=== PATIENT | male | born 1960 | race Caucasian/White ===

== ENCOUNTER 2017-05-11 09:20 | Emergency (ER) | payer BC ==
[2017-05-11 09:37] VITALS: BP 141/82; BMI 33.9
--- NOTE | 2017-05-11 10:07 | DR.EXTPAIN ---
HPI - Time seen Time seen: 10:00 - PCP Primary Care Physician: RAÚL ABREU - HPI Comment HPI Comment: PATIENT HAVING PROBLEM BEARING WEIGHT ON THE RIGHT SIDE. DENIES PELVIC PAIN. - Complaint/Symptoms Chief Complaint Doctor Comments: JUMP OFF 6 FOOT LADDER AND LANDED ON RIGHT HEEL. Chief Complaint:: JUMPED FROM LADDER OF ABOUT 6 FOOT FROM FALLING LADDER. LANDED ON RIGHT ANKLE/FOOT. PAIN TO RIGHT ANKLE AND FOOT Self Treatment fo Chief Complaint: NON - Nurses notes reviewed Nurses Notes Review: Yes - Source History Provided: Patient - Mode of arrival Mode of Arrival: Wheelchair - Timing Onset of Chief Complaint: 05/11/17 - Context History of: None - Associated signs and symptoms Associated Signs and Symptoms: Pain, Swelling, Bruising PMH - PMH Past Medical History: Yes Past Medical History: Arthritis, Diabetes, Hypertension, Hypothyroidism Past Surgical History: No - Family History History of Family Medical Conditions: Yes Family Medical History: Diabetes Mellitus, Cancer, MS, Coronary Artery Disease, Hypertension - Social History Does any household member use tobacco: No Alcohol Use: None Do you use any recreational Drugs:: No Lives With: Family Lives Where: Home - infectious screening In the last 2 months have you had wt loss of >10#?: NO Have you had fever, night sweats or hemotysis?: No Have you traveled outside the country in the last 6 months?: No Isolation: Standard ROS - Review of Systems Constitutional: No Symptoms Reported Eyes: No Symptoms Reported ENTM: No Symptoms Reported Respiratoy: No Symptoms Reported Cardiovascular: No Symptoms Reported Gastrointestinal/Abdominal: No Symptoms Reported Genitourinary: No Symptoms Reported Neurological: No Symptoms Reported Musculoskeletal: Right, Ankle, Foot Integumentary: No Symptoms Reported Hematologic/Lymphatic: No Symptoms Reported Endocrine: No Symptoms Reported All Other Systems: Reviewed and Negative PE - Vital Signs Vitals: Temperature 98.0 F Pulse Rate 83 Respiratory Rate 14 Blood Pressure 141/82 O2 Sat by Pulse Oximetry 100 - General Limitations: No Limitations General Appearance: Alert - Head Head Exam: Normal Inspection - Eyes Eye exam: Normal Appearance - ENT ENT Exam: Normal External Ear Exam - Neck Neck Exam: Normal Inspection - Chest Chest Inspection: Symmetric Chest Wall Rise - Respiratory Respiratory Exam: Normal Lung Sounds Bilat Respiratory Exam: Bilateral Clear to Auscultation - Cardiovascular Cardiovascular Exam: Regular Rate, Normal Rhythm, Normal Heart Sounds - Abdominal Exam Abdominal Exam: Normal Bowel Sounds, Soft. negative: Distention - Extremities Extremities Exam: Tenderness (TENDERNESS RT ANKLE AND FOOT WITH DECREASE ROM RT ANKLE.), Joint Swelling (RT ANKLE) - Lower Extremities Gait Exam: Observed & Limited by Pain - Back Back Exam: Normal Inspection - Neurological Neurological Exam: Alert, Oriented X3, CN II-XII Intact. negative: Motor Sensory Deficit - Psychiatric Psychiatric Exam: Normal Affect, Normal Mood - Skin Skin Exam: Erythema MDM - Differential Diagnosis Differential Diagnosis: Contusion, Fracture, Sprain Course - Treatment Treatment: SEE ORDERS. - Consultation Consultation Comments: DR. LLOYD IN ED AND SAW PATIENT. - Education/Counseling Education/Counseling: Patient, Family, Education Educated On: Diagnosis, Needs for Follow Up ROR - XRAY XRAY Interpreted by: Radiologist XRAY Findings: REPORT DISCUSS WITH PATIENT. - Diagnosis Discharge Problem: Calcaneal fracture Qualifiers: Encounter type: initial encounter Calcaneus location: body Fracture type: closed Fracture alignment: nondisplaced Laterality: right Qualified Code(s): S92.014A - Nondisplaced fracture of body of right calcaneus, initial encounter for closed fracture - Discharge Plan Disposition: 01 HOME, SELF-CARE Condition: Stable Prescriptions: Hydrocodone-Acet 7.5 mg/325 mg [Murphy 7.5/325 mg Tab] 1 tab PO Q6H PRN #20 tab PRN Reason: Pain - Follow ups/Referrals Follow ups/Referrals: RAÚL ABREU [Primary Care Provider] - 3 days DANTE LLOYD [STAFF PHYSICIAN] - 1 day - Instructions Instructions: Ankle Fracture, [id number] Additional Instructions: RETURN TO ED IF WORSE.
--- NOTE | 2017-05-11 10:57 | RAD ---
HISTORY: Injury, fell from ladder, right foot pain Study: Right foot AP, lateral, oblique Comparison: None Findings: There is a not significantly displaced fracture of the calcaneus present. The subtalar joint is intac t. The remainder of the bones and joints of the foot are intact and normally aligned. IMPRESSION: Nondisplaced calcaneal fracture Reported By:
--- NOTE | 2017-05-11 12:25 | RAD ---
HISTORY: Seen after fall from ladder Study: Three views right ankle Comparison: None Findings: Normal alignment. There is a nondisplaced fracture of the midportion of the calcaneus. The soft tissu es are unremarkable. IMPRESSION: 1. Nondisplaced fracture the midportion of the calcaneus. Reported By:
== END 2017-05-11 12:13 | disposition home or self-care (01) ==
LOC: ER 09:43
DX: S92.014A Nondisplaced fracture of body of right calcaneus, initial encounter for closed fracture (principal); W11.XXXA Fall on and from ladder, initial encounter; Y92.9 Unspecified place or not applicable
CPT/HCPCS: 29515; 73610; 73630; 99282

== ENCOUNTER → 2017-05-25 | Outpatient (CLI) | payer BC ==
[2017-05-11 09:37] VITALS: BP 141/82
--- NOTE | 2017-05-25 15:15 | CT ---
CT right foot without contrast Indication: Calcaneal fracture after jumping from ladder Comparison: Radiographs 05/11/2017 Technique: CT images of the right foot were obtained without contrast. Automatic exposure control was utilized. Findings: There is comminuted calcaneal fracture with fracture extension to the calcaneocuboid and po sterior subtalar articular surfaces. There is no significant bony displacement. No additional foot fr acture or subluxation is identified. Small chronic calcaneal enthesophyte at the Achilles attachment is noted. Type 1 os navicularis is incidentally noted. There is subcutaneous edema about the calcaneu s, without discrete collection. The tendons about the foot and ankle are grossly intact. Impression: Comminuted calcaneal fracture without significant bony displacement. Reported By:
== END ==
LOC: RAD 14:34
PROVIDERS: ATTEND Specialist
DX: S92.001S Unspecified fracture of right calcaneus, sequela (principal); X58.XXXS Exposure to other specified factors, sequela
CPT/HCPCS: 73700

== ENCOUNTER → 2017-06-17 | Outpatient (CLI) | payer BC ==
--- NOTE | 2017-06-17 15:41 | RAD ---
Examination: Right foot, three views History: Fracture calcaneus Comparison reference: 05/11/2017 Findings: Re-demonstration of comminuted calcaneal fracture with slight interval healing. Bony union is not complete. There is no significant deformity or flattening; Boehler's angle remains normal. Impression: Healing right calcaneal fracture with no significant deformity recognized. Reported By:
== END ==
LOC: RAD 14:35
PROVIDERS: ATTEND Specialist
DX: S92.014 Nondisplaced fracture of body of right calcaneus (principal); X58.XXXS Exposure to other specified factors, sequela
CPT/HCPCS: 73630

== ENCOUNTER 2025-04-19 18:44 | Observation (INO) ==
--- NOTE | 2025-04-19 18:59 | EKG ---
Test Reason : Shortness of Breath Blood Pressure : */* mmHG Vent. Rate : 109 BPM Atrial Rate : 109 BPM P-R Int : 120 ms QRS Dur : 96 ms QT Int : 346 ms P-R-T Axes : 39 37 49 degrees QTc Int : 465 ms Sinus tachycardia Low voltage QRS T wave abnormality, consider inferior ischemia Abnormal ECG No previous ECGs available Confirmed by Ascencion Landers MD ([id number]) on 04/20/2025 6:00:28 AM Referred By: Confirmed By: Ascencion Landers MD
[2025-04-19 19:03] VITALS: BMI 32.3
[2025-04-19 19:17] LABS: MEAN PLATELET VOLUME 9.1 fL (7.4-11.0); RED CELL DISTRIBUTION WIDTH 14.4 % (11.6-16.5)
[2025-04-19 19:29] LABS: COR NA(FOR HYPERGLY) 137 mmol/L (136-145); CREATININE 1.15 mg/dL (0.70-1.30); eGFR NON BLACK RACES > 60 (>60)
[2025-04-19 19:34] LABS: PLATELET MORPHOLOGY COMMENT NORMAL (NORMAL)
[2025-04-19 19:37] LABS: BLOOD/HEMOGLOBIN,URINE 2+ (NEGATIVE); LEUKOCYTE ESTERASE ,URINE NEGATIVE (NEGATIVE); NITRITES,URINE NEGATIVE (NEGATIVE)
[2025-04-19] MEDS: NS 1,000 ML IV 1,000 ML IV ONE ×2 (19:38→20:18)
[2025-04-19 19:39] LABS: APPEARANCE,URINE CLEAR (CLEAR)
[2025-04-19] MEDS: MAGNESIUM SULFATE 1 GRAM/100 mL PREMIX 1 G/100 ML BAG IV SCH (19:39)
[2025-04-19 19:45] LABS: SQUAMOUS EPITHELIAL CELL,UR NEGATIVE /HPF (NEGATIVE)
[2025-04-19] MEDS: ZOSYN VIAL 3.375 GRAMS 3.375 G in NS 100 ML IV 100 ML IV ONE (21:06)
--- NOTE | 2025-04-19 21:12 | CT ---
EXAM: CTA CHEST WITH INTRAVENOUS CONTRAST HISTORY: Elevated D-dimer. Shortness of breath. TECHNIQUE: Spiral axial CT images are obtained through the chest with the administration of intravenous contrast. Coronal, sagittal and 3D MIP images are reformatted. COMPARISON: None available. FINDINGS: CARDIOVASCULAR: There is no evidence for pulmonary embolic disease. The heart size and mediastinal vascular structures are within normal limits. There is no significant aortic or coronary atherosclerosis seen. No thoracic aortic aneurysm or dissection is noted. MEDIASTINUM AND GIFTY: No mass lesion, lymphadenopathy, emphysema, or abnormal fluid collection is seen. LUNGS: There is no acute parenchymal infiltrate, lung nodule, or endobronchial obstructing lesion seen. No pleural effusion or pneumothorax is evident. CHEST WALL: There are no chest wall lesions seen. No axillary lymphadenopathy is noted. BONES AND JOINTS: There is no acute fracture or joint subluxation/dislocation seen. UPPER ABDOMEN: Limited views through the upper abdomen demonstrate no gross acute abnormality. IMPRESSION: 1. No evidence for pulmonary embolic disease. 2. No evidence for aortic aneurysm or aortic dissection. 3. No acute parenchymal infiltrate, pleural effusion, endobronchial obstructing lesion or pneumothorax seen. 4. No suspicious mass or lymphadenopathy is seen. THIS IS AN ELECTRONICALLY VERIFIED FINAL REPORT 04/19/2025 9:09 PM - Electronically signed by Lillie Garcia MD
--- NOTE | 2025-04-19 21:40 | CT ---
CT ABDOMEN AND PELVIS WITHOUT CONTRAST HISTORY: Abdominal pain COMPARISON: None TECHNIQUE: Axial images were obtained of the abdomen and pelvis without IV contrast. Sagittal and coronal reformatted images were provided. All images were reviewed in a variety of windows and levels. RADIATION REDUCTION TECHNIQUE: Automated exposure control, adjustment of the mA or kV according to patient size, or iterative reconstruction techniques were used. FINDINGS: Please note that lack of IV contrast does limit evaluation of the soft tissues and vascular detail. Please note this exam is a CT scan of the abdomen and pelvis without IV contrast. However images were obtained during the excretory phase after contrast was injected. This is most likely from a study obtained on the same day which was for a CT angiogram of the chest. The visualized lower lung zones are clear. The heart size is within normal limits. There is no evidence of a pericardial effusion. The liver, spleen, pancreas, adrenal glands, and kidneys are grossly unremarkable. The gallbladder is grossly unremarkable. There is no evidence of stones or signs of obstructive uropathy. The stomach, small bowel, and colon are grossly unremarkable. A few scattered diverticula are seen without evidence of diverticulitis. There are no inflammatory changes in the right lower quadrant to suggest secondary signs of acute appendicitis. The appendix is normal. There is no evidence of retroperitoneal or mesenteric lymphadenopathy. The visualized bones demonstrate degenerative changes. There are no concerning lytic or blastic lesions identified. IMPRESSION: 1. The appendix is normal. 2. A few scattered diverticula are seen without evidence of diverticulitis. 3. There is no evidence of stones or signs of obstructive uropathy. 4. Please note this exam is a CT scan of the abdomen and pelvis without IV contrast. However images were obtained during the excretory phase after contrast was injected. This is most likely from a study obtained on the same day which was for a CT angiogram of the chest. THIS IS AN ELECTRONICALLY VERIFIED FINAL REPORT 04/19/2025 9:37 PM - Electronically signed by Tyrone Herndon MD
--- NOTE | 2025-04-19 22:01 | DR.FEVERAD ---
HPI Time seen Time Seen by Provider: 04/19/25 19:00 PCP Primary Care Physician: RAÚL ABREU Complaints/Symptoms Chief Complaint Doctor Comments: Patient with history of total left knee performed 4 weeks ago healing well. Patient started having shaking and not feeling well last night, today started having fever cramping chest pain and some shortness of breath. Patient was seen at his PCP and diagnosed with UTI. Patient was given Rocephin in the office and started on Cipro. Patient feels like he has had no improvement. Chief Complaint:: PT IN ED VIA WHEELCHAIR WITH C/O FEVRE, SHAKING, CRAMPING, CHEST PAIN, DIFFICULTY BREATHING AND TALKING OUT OF HEAD. PT IS 4 WEEKS POST OP TOTAL LEFT KNEE. WAS SEEN BY PRIMARY THIS AM AND DX WITH UTI AND GIVEN A ROCEPHIN SHOT. COVID-19 Coronavirus risk:travel/contact w/high risk person: No Has patient experienced Coronavirus symptoms: Yes Coronavirus symptoms experienced: Fever and Shortness of Breath Source History Provided: Patient and Family Member Mode of Arrival Mode of Arrival: Wheelchair Timing Onset of Chief Complaint: 04/18/25 PMH PMH Past Medical History: Yes Past Medical History: Angina, Anxiety, Arthritis, Depression, Diabetes, Dyslipidemia, Hypertension, Hypothyroidism and HI Past Surgical History: Yes Surgical History: Ortho Surgery Past Surgical History Comment: TOTAL LEFT KNEE Family History History of Family Medical Conditions: Yes Family Medical History: Diabetes Mellitus, Cancer, HI, Coronary Artery Disease and Hypertension Social History Does patient currently use any type of tobacco product: No Have you used tobacco products in the last 12 months: No Type of Tobacco Use: None Does any household member use tobacco: No Alcohol Use: None Do you use any recreational Drugs:: No Lives With: Spouse Lives Where: Home Travel Risk Coronavirus risk:travel/contact w/high risk person: No Has patient experienced Coronavirus symptoms: Yes Coronavirus symptoms experienced: Fever and Shortness of Breath Infectious screening In the last 2 months have you had wt loss of >10#?: NO Have you had fever, night sweats or hemotysis?: No Have you traveled outside the country in the last 6 months?: No Isolation: Standard ROS Review of Systems Constitutional: See HPI, Chills and Fever Eyes: No Symptoms Reported ENTM: No Symptoms Reported Respiratoy: See HPI and Short of Breath; negative Wheezing Cardiovascular: See HPI and Chest Pain; negative Edema, Palpitations or Syncope Gastrointestinal/Abdominal: Abdominal Pain (Suprapubic discomfort); negative Constipation, Diarrhea, Nausea or Vomiting Genitourinary: See HPI Neurological: No Symptoms Reported; negative Numbness, Seizure, Dizziness or Speech Problem Musculoskeletal: No Symptoms Reported Integumentary: No Symptoms Reported Hematologic/Lymphatic: No Symptoms Reported Endocrine: No Symptoms Reported Psychiatric: No Symptoms Reported All Other Systems: Reviewed and Negative PE Vital Signs Vitals: Vital Signs Temperature 98.2 F Pulse Rate 94 Pulse Rate 94 Pulse Rate 100 Pulse Rate 99 Pulse Rate 95 Pulse Rate 94 Pulse Rate 91 Pulse Rate 96 Pulse Rate 97 Pulse Rate 101 Pulse Rate 108 Pulse Rate 151 Respiratory Rate 31 Respiratory Rate 32 Respiratory Rate 40 Respiratory Rate 36 Respiratory Rate 37 Respiratory Rate 45 Respiratory Rate 48 Respiratory Rate 30 Respiratory Rate 45 Respiratory Rate 24 Blood Pressure 183/81 Blood Pressure 179/81 Blood Pressure 167/74 Blood Pressure 134/54 Blood Pressure 166/96 Blood Pressure 166/96 O2 Sat by Pulse Oximetry 97 O2 Sat by Pulse Oximetry 100 O2 Sat by Pulse Oximetry 100 O2 Sat by Pulse Oximetry 99 O2 Sat by Pulse Oximetry 100 O2 Sat by Pulse Oximetry 100 O2 Sat by Pulse Oximetry 100 O2 Sat by Pulse Oximetry 100 O2 Sat by Pulse Oximetry 100 O2 Sat by Pulse Oximetry 98 O2 Sat by Pulse Oximetry 99 O2 Sat by Pulse Oximetry 98 General Limitations: No Limitations General Appearance: Alert, Anxious and In Distress Head Head Exam: Normal Inspection Eyes Eye exam: Normal Appearance ENT ENT Exam: Normal Exam Neck Neck Exam: Normal Inspection Respiratory Respiratory Exam: Normal Lung Sounds Bilat Cardiovascular Cardiovascular Exam: Regular Rate and Normal Rhythm Abdominal Exam Abdominal Exam: Normal Inspection, Normal Bowel Sounds, Soft and Tenderness (Very mild tenderness over bladder.); negative Distention, Guarding, Rebound, Rigidity or Organomegaly Extremities Extremities Exam: Normal Inspection (Left knee surgical site healing well without signs of infection.) Back Back Exam: Normal Inspection Neurologic Neurological Exam: Alert and Oriented X3 Psychiatric Psychiatric Exam: Anxious Skin Skin Exam: Warm, Dry, Intact and Normal Color COURSE Treatment Treatment: Patient improved significantly during time in ER. Sepsis suspected from UTI. Suspect D-dimer is elevated due to infection. Patient and family agreeable with admission. Discussed results of workup and treatment options with patient and family. Consultation Called: 22:12 Consultation Comments: Discussed case with Dr. Gómez and he is agreeable to admission ROR Labs Reviewed Laboratory Results Reviewed?: Yes 04/19/25 19:03 04/19/25 19:03 Laboratory: WBC 23.2 X10^3/uL (3.6-10.0) H 04/19/25 19:03 RBC 4.74 X10^6/uL (4.7-6.0) 04/19/25 19:03 Hgb 13.2 g/dL (13.5-18.0) L 04/19/25 19:03 Hct 39.5 % (42.0-54.0) L 04/19/25 19:03 MCV 83.2 fL (80.0-100.0) 04/19/25 19:03 MCH 27.8 pg (27.0-34.0) 04/19/25 19:03 MCHC 33.4 g/dL (33.0-35.0) 04/19/25 19:03 RDW 14.4 % (11.6-16.5) 04/19/25 19:03 Plt Count 222 X10^3/uL (150.0-450.0) 04/19/25 19:03 Plt Count Comment Adequate (ADEQUATE) 04/19/25 19:03 MPV 9.1 fL (7.4-11.0) 04/19/25 19:03 Neut % (Auto) 85.1 % (42.0-75.0) H 04/19/25 19:03 Lymph % (Auto) 7.9 % (21.0-51.0) L 04/19/25 19:03 [place] % (Auto) 6.3 % (0.0-13.0) 04/19/25 19:03 Eos % (Auto) 0.2 % (0.9-2.9) L 04/19/25 19:03 Baso % (Auto) 0.5 % (0.2-1.0) 04/19/25 19:03 Neut # (Auto) 19.8 x10^3/uL (2.2-4.8) H 04/19/25 19:03 Lymph # (Auto) 1.8 X10^3/uL (1.3-2.9) 04/19/25 19:03 [place] # (Auto) 1.5 x10^3/uL (0.3-0.8) H 04/19/25 19:03 Eos # (Auto) 0.0 x10^3/uL (0.0-0.2) 04/19/25 19:03 Baso # (Auto) 0.1 X10^3/uL (0.0-0.1) 04/19/25 19:03 Absolute Nucleated RBC 0.0 /100WBC 04/19/25 19:03 Total Counted 100 04/19/25 19:03 Neutrophils % (Manual) 81 % (39-76) H 04/19/25 19:03 Lymphocytes % (Manual) 11 % (13-43) L 04/19/25 19:03 Monocytes % (Manual) 8 % (4-9) 04/19/25 19:03 Plt Morphology Comment Normal (NORMAL) 04/19/25 19:03 RBC Morphology Normal (NORMAL) 04/19/25 19:03 D-Dimer 2.46 ug/ml (0.0-0.57) H 04/19/25 19:03 Sodium 133 mmol/L (136-145) L 04/19/25 19:03 Corrected Sodium 137 mmol/L (136-145) 04/19/25 19:03 Potassium 3.4 mmol/L (3.5-5.1) L 04/19/25 19:03 Chloride 99 mmol/L (98-107) 04/19/25 19:03 Carbon Dioxide 18.9 mmol/L (21-32) L 04/19/25 19:03 BUN 13 mg/dL (7-18) 04/19/25 19:03 Creatinine 1.15 mg/dL (0.70-1.30) 04/19/25 19:03 Est GFR (MDRD) Af Amer > 60 (>60) 04/19/25 19:03 Est GFR (MDRD) Non-Af > 60 (>60) 04/19/25 19:03 Glucose 246 mg/dL (65-99) H 04/19/25 19:03 POC Glucose (mg/dL) 218 mg/dL (65-99) H 04/19/25 21:51 Lactic Acid 2.0 mmol/L (0.4-2.0) 04/19/25 21:03 Calcium 8.8 mg/dL (8.5-10.1) 04/19/25 19:03 Corrected Calcium TNP 04/19/25 19:03 Magnesium 1.7 mg/dL (2.0-2.9) L 04/19/25 19:03 Magnesium Cancelled 04/19/25 19:03 Total Bilirubin 1.50 mg/dL (0.2-1.0) H 04/19/25 19:03 AST 17 Units/L (15-37) 04/19/25 19:03 ALT 16 Units/L (12-78) 04/19/25 19:03 Alkaline Phosphatase 74 Units/L (46-116) 04/19/25 19:03 Troponin I High Sens 11.7 ng/L (4.0-60.0) 04/19/25 21:03 B-Natriuretic Peptide 42.8 pg/mL (0-79) 04/19/25 19:03 Total Protein 8.0 g/dL (6.4-8.2) 04/19/25 19:03 Albumin 3.7 g/dL (3.4-5.0) 04/19/25 19:03 Globulin 4.3 g/dL (2.5-4.5) 04/19/25 19:03 Albumin/Globulin Ratio 0.9 Ratio (1.1-2.1) L 04/19/25 19:03 Specimen Type Clean catch urine 04/19/25 19: Urine Color Yellow (YELLOW) 04/19/25: Urine Appearance Clear (CLEAR) 04/19/25: Urine pH 6.0 (5.0 - 8.0) 04/19/25: Ur Specific [place] 1.005 (1.000-1.030) 04/19/25: Urine Protein 1+ (NEGATIVE) 04/19/25: Urine Glucose (UA) 4+ (NEGATIVE) 04/19/25: Urine Ketones 3+ (NEGATIVE) 04/19/25 Urine Blood 2+ (NEGATIVE) 04/19/25: Urine Nitrite Negative (NEGATIVE) 04/19/25: Urine Bilirubin Negative (NEGATIVE) 04/19/25: Urine Urobilinogen Normal (NORMAL) 04/19/25: Ur Leukocyte Esterase Negative (NEGATIVE) 04/19/25:30 Urine RBC 3-5 /HPF (0-3) A 04/19/25 19:30 Urine WBC 30-50 /HPF (0-5) A 04/19/25 19:30 Ur Squamous Epith Cells Negative /HPF (NEGATIVE) 04/19/25 19:30 Urine Bacteria Negative /HPF (NEGATIVE) 04/19/25 19:30 Ur Culture Indicated? Yes/culture set up 04/19/25 19:30 SARS-CoV-2 (PCR) Negative (NEGATIVE) 04/19/25 19:10 Influenza Type A (PCR) Negative (NEGATIVE) 04/19/25 19:10 Influenza Type B (PCR) Negative (NEGATIVE) 04/19/25 19:10 RSV (PCR) Negative (NEGATIVE) 04/19/25 19:10 Other Results Comments: Venous Doppler of bilateral lower extremities were negative per windmill technician. Name: Khoa Staples : 1960 Sex: M Location: ER Order Number(s): [id number] Procedure(s):LOWER EXT VENOUS, BILATERAL Ordering Physician: Danie Charles Primary Care: NFD,None Service Date: 04/19/25 Service Time: 2114 EXAM: BILATERAL LOWER EXTREMITY VENOUS DOPPLER ULTRASOUND HISTORY: Elevated D-dimer. Status post left knee replacement. TECHNIQUE: The lower extremity veins were interrogated with a high-frequency linear transducer, employing grayscale imaging, duplex Doppler and color flow Doppler imaging. COMPARISON: None available. FINDINGS: RIGHT: Interrogation of the common femoral vein, superficial femoral vein, popliteal vein, and posterior tibial vein demonstrates no intraluminal filling defects, no lack of vein compressibility, or no absence of intraluminal color flow Doppler signal to suggest deep venous thrombosis. There is no evidence for luminal thrombosis of the saphenous veins to suggest superficial vein thrombosis. No popliteal lesion reminiscent of a Rebolledo's cyst is seen. No gross arterial aneurysm is incidentally noted. LEFT: Interrogation of the common femoral vein, superficial femoral vein, popliteal vein, and posterior tibial vein demonstrates no intraluminal filling defects, no lack of vein compressibility, or no absence of intraluminal color flow Doppler signal to suggest deep venous thrombosis. There is no evidence for luminal thrombosis of the saphenous veins to suggest superficial vein thrombosis. No popliteal lesion reminiscent of a Rebolledo's cyst is seen. No gross arterial aneurysm is incidentally noted. Note: DVT could be missed early in the disease when clot burden is minimal. For patients with moderate and high pretest probability of DVT and negative ultrasound, the [employer] [place] [employer] chest physicians clinical guidelines recommend testing with a d-dimer assay or repeat ultrasound in 5-7 days. If symptoms worsen, the Society of radiologists in ultrasound recommend repeating ultrasound even earlier. IMPRESSION: 1. No evidence for DVT or SVT seen bilaterally. 2. No abnormal fluid collection or Rebolledo's cyst seen bilaterally. THIS IS AN ELECTRONICALLY VERIFIED FINAL REPORT 04/19/2025 10:01 PM - Electronically signed by Lillie Garcia MD Name: Khoa Staples : 1960 Sex: M Location: ER Order Number(s): [id number] Procedure(s):CT ABDOMEN/PELVIS W/O CON Ordering Physician: Danie Charles Primary Care: NFDMarisela Service Date: 04/19/25 Service Time: 1942 CT ABDOMEN AND PELVIS WITHOUT CONTRAST HISTORY: Abdominal pain COMPARISON: None TECHNIQUE: Axial images were obtained of the abdomen and pelvis without IV contrast. Sagittal and coronal reformatted images were provided. All images were reviewed in a variety of windows and levels. RADIATION REDUCTION TECHNIQUE: Automated exposure control, adjustment of the mA or kV according to patient size, or iterative reconstruction techniques were used. FINDINGS: Please note that lack of IV contrast does limit evaluation of the soft tissues and vascular detail. Please note this exam is a CT scan of the abdomen and pelvis without IV contrast. However images were obtained during the excretory phase after contrast was injected. This is most likely from a study obtained on the same day which was for a CT angiogram of the chest. The visualized lower lung zones are clear. The heart size is within normal limits. There is no evidence of a pericardial effusion. The liver, spleen, pancreas, adrenal glands, and kidneys are grossly unremarkable. The gallbladder is grossly unremarkable. There is no evidence of stones or signs of obstructive uropathy. The stomach, small bowel, and colon are grossly unremarkable. A few scattered diverticula are seen without evidence of diverticulitis. There are no inflammatory changes in the right lower quadrant to suggest secondary signs of acute appendicitis. The appendix is normal. There is no evidence of retroperitoneal or mesenteric lymphadenopathy. The visualized bones demonstrate degenerative changes. There are no concerning lytic or blastic lesions identified. IMPRESSION: 1. The appendix is normal. 2. A few scattered diverticula are seen without evidence of diverticulitis. 3. There is no evidence of stones or signs of obstructive uropathy. 4. Please note this exam is a CT scan of the abdomen and pelvis without IV contrast. However images were obtained during the excretory phase after contrast was injected. This is most likely from a study obtained on the same day which was for a CT angiogram of the chest. THIS IS AN ELECTRONICALLY VERIFIED FINAL REPORT 04/19/2025 9:37 PM - Electronically signed by Tyrone Herndon MD Name: Khoa Staples : 1960 Sex: M Location: ER Order Number(s): [id number] Procedure(s):CTA, CHEST Ordering Physician: Danie Charles Primary Care: NFD,None Service Date: 04/19/25 Service Time: 1929 EXAM: CTA CHEST WITH INTRAVENOUS CONTRAST HISTORY: Elevated D-dimer. Shortness of breath. TECHNIQUE: Spiral axial CT images are obtained through the chest with the administration of intravenous contrast. Coronal, sagittal and 3D MIP images are reformatted. COMPARISON: None available. FINDINGS: CARDIOVASCULAR: There is no evidence for pulmonary embolic disease. The heart size and mediastinal vascular structures are within normal limits. There is no significant aortic or coronary atherosclerosis seen. No thoracic aortic aneurysm or dissection is noted. MEDIASTINUM AND GIFTY: No mass lesion, lymphadenopathy, emphysema, or abnormal fluid collection is seen. LUNGS: There is no acute parenchymal infiltrate, lung nodule, or endobronchial obstructing lesion seen. No pleural effusion or pneumothorax is evident. CHEST WALL: There are no chest wall lesions seen. No axillary lymphadenopathy is noted. BONES AND JOINTS: There is no acute fracture or joint subluxation/dislocation seen. UPPER ABDOMEN: Limited views through the upper abdomen demonstrate no gross acute abnormality. IMPRESSION: 1. No evidence for pulmonary embolic disease. 2. No evidence for aortic aneurysm or aortic dissection. 3. No acute parenchymal infiltrate, pleural effusion, endobronchial obstructing lesion or pneumothorax seen. 4. No suspicious mass or lymphadenopathy is seen. THIS IS AN ELECTRONICALLY VERIFIED FINAL REPORT 04/19/2025 9:09 PM - Electronically signed by Lillie Garcia MD XRAY XRAY Interpreted by: Self (Chest x-ray reviewed interpreted by myself. No acute cardiopulmonary findings) EKG Rate: 109 [place]: Normal Rhythm: ST Block: None Hypertrophy: None ST: Normal Opioid Opioid Risk Tool Age (Jered box if 16-45): No History of Preadolescent Sexual Abuse: No Total: 0 Total Score Risk Category: Low Risk Copyright: [facility] predicting aberrant behaviors Discharge Plan Diagnosis Discharge Problem: Sepsis secondary to UTI, Diabetes mellitus type 2, noninsulin dependent, Hypertension, Hyperlipidemia, Hypothyroidism Discharge Plan Patient Disposition: ADMITTED INPATIENT Condition: Stable Prescriptions: No Action Jardiance 25 mg tablet 25 mg PO QAM Qty: 90 3RF losartan 50 MG tablet 50 mg PO DAILY Patient Comments: levothyroxine 50 MCG tablet 50 mcg PO DAILY meloxicam 15 mg tablet 15 mg PO QDAY ciprofloxacin HCl 500 mg tablet 500 mg PO BID glimepiride 2 mg tablet 2 mg PO BID escitalopram oxalate 20 mg tablet 10 mg PO QDAY Mounjaro 15 mg/0.5 mL pen injector 15 mg SUBCUT WEEKLY Patient Comments: [NO ORIGINAL SIG] aspirin 81 mg Tablet 81 mg PO QDAY Health Concerns: Post Hospitalization: new medications and changes needed to prevent readmission or further decline. Pt educated and given instructions on all concerns. Plan of Treatment: Continue with present treatment and follow up plan. Pt is to keep follow up appointment as instructed and take medications as ordered. Orders to Discharge Patient Discharge Orders: Transfer (Routine); Ordered 04/19/25 Ordered By: Danie Charles Follow ups/Referrals Follow ups/Referrals: NFD,None [Primary Care Provider] - 3 days Instructions Stand Alone Forms: Find Help Web Site, Post Hospital Follow Up Care Print Language: SAMMARINESE
--- NOTE | 2025-04-19 22:05 | VAS ---
EXAM: BILATERAL LOWER EXTREMITY VENOUS DOPPLER ULTRASOUND HISTORY: Elevated D-dimer. Status post left knee replacement. TECHNIQUE: The lower extremity veins were interrogated with a high-frequency linear transducer, employing grayscale imaging, duplex Doppler and color flow Doppler imaging. COMPARISON: None available. FINDINGS: RIGHT: Interrogation of the common femoral vein, superficial femoral vein, popliteal vein, and posterior tibial vein demonstrates no intraluminal filling defects, no lack of vein compressibility, or no absence of intraluminal color flow Doppler signal to suggest deep venous thrombosis. There is no evidence for luminal thrombosis of the saphenous veins to suggest superficial vein thrombosis. No popliteal lesion reminiscent of a Rebolledo's cyst is seen. No gross arterial aneurysm is incidentally noted. LEFT: Interrogation of the common femoral vein, superficial femoral vein, popliteal vein, and posterior tibial vein demonstrates no intraluminal filling defects, no lack of vein compressibility, or no absence of intraluminal color flow Doppler signal to suggest deep venous thrombosis. There is no evidence for luminal thrombosis of the saphenous veins to suggest superficial vein thrombosis. No popliteal lesion reminiscent of a Rebolledo's cyst is seen. No gross arterial aneurysm is incidentally noted. Note: DVT could be missed early in the disease when clot burden is minimal. For patients with moderate and high pretest probability of DVT and negative ultrasound, the [place] [employer] clinical guidelines recommend testing with a d-dimer assay or repeat ultrasound in 5-7 days. If symptoms worsen, the Society of radiologists in ultrasound recommend repeating ultrasound even earlier. IMPRESSION: 1. No evidence for DVT or SVT seen bilaterally. 2. No abnormal fluid collection or Rebolledo's cyst seen bilaterally. THIS IS AN ELECTRONICALLY VERIFIED FINAL REPORT 04/19/2025 10:01 PM - Electronically signed by Lillie Garcia MD
[2025-04-19] MEDS: APRESOLINE INJ 20 MG VIAL IVP ONE (22:27)
[2025-04-19] MEDS ORDERED: NS 250 ML IV 25 ML IV PRN (22:56)
[2025-04-19] MEDS ORDERED: TYLENOL 325 MG TAB PO PRN (22:56)
[2025-04-19] MEDS ORDERED: NORCO 5/325 MG TAB PO PRN (22:56)
[2025-04-19] MEDS ORDERED: ZOFRAN INJ 4 MG VIAL IVP PRN (22:56)
[2025-04-19] MEDS ORDERED: ULTRAM PO PRN (22:56)
[2025-04-19] MEDS ORDERED: CONSULT PHARMACY - POTASSIUM & MAGNESIUM XX SCH (23:00)
[2025-04-20] MEDS: NS 1,000 ML IV 1,000 ML IV SCH (00:36)
[2025-04-20] MEDS: NS 250 ML IV 25 ML IV PRN (05:10)
[2025-04-20] MEDS: ZOSYN VIAL 3.375 GRAMS 3.375 G in NS 100 ML IV 100 ML IV SCH (05:10)
[2025-04-20 05:13] LABS: MEAN PLATELET VOLUME 9.4 fL (7.4-11.0); RED CELL DISTRIBUTION WIDTH 14.5 % (11.6-16.5)
[2025-04-20 05:29] LABS: COR CA(FOR HYPOALB) 8.9 mg/dL (8.5-10.1); COR NA(FOR HYPERGLY) 138 mmol/L (136-145); CREATININE 0.93 mg/dL (0.70-1.30); eGFR NON BLACK RACES > 60 (>60)
--- NOTE | 2025-04-20 06:38 | RAD ---
EXAM: Portable chest HISTORY: Shortness of breath COMPARISON: 01/17/2025 FINDINGS: Hear t size is normal. Katie are normal. Lung soliman are clear. No pleural effusions are identified. No pneumothorax identified. Bony thorax is unremarkable. IMPRESSION: No significant abnormality identified THIS IS AN ELECTRONICALLY VERIFIED FINAL REPORT 04/20/2025 6:35 AM - Electronically signed by Omkar Childers MD
[2025-04-20] MEDS ORDERED: CONSULT PHARMACY - POTASSIUM & MAGNESIUM XX SCH (07:00)
--- NOTE | 2025-04-20 07:33 | DR.H&P ---
H&P History & Physical for Day of: H&P Date: 04/19/25 Chief Complaint Chief Complaint: fever, chills, UTI History of Present Illness History of Present Illness: Patient is a 65WM, ER admission with history of total left knee performed 4 weeks ago healing well. Patient started having shaking and not feeling well last night, today started having fever cramping chest pain and some shortness of breath. Patient was seen at his PCP and diagnosed with UTI, negative then for flu and covid Patient was given Rocephin in the office and started on Cipro. Patient feels like he has had no improvement. Past Medical History Past Medical History: Angina, Anxiety, Arthritis, Depression, Diabetes, Dyslipidemia, Hypertension, Hypothyroidism and [place] Past Surgical History Surgical History: Ortho Surgery Family History Family Medical History: Diabetes Mellitus, Cancer and Coronary Artery Disease Social History Does patient currently use any type of tobacco product: No Have you used tobacco products in the last 12 months: No Type of Tobacco Use: None Does any household member use tobacco: No Alcohol Use: None Drug Use: None Medications Home Medications: Home Medications Medication Instructions Recorded Confirmed Type levothyroxine 50 mcg tablet 50 mcg PO DAILY 05/11/17 0 04/19/25 History losartan 50 mg tablet 50 mg PO DAILY 05/11/1704/02 History aspirin 81 mg tablet 81 mg PO QDAY 04/19/2504/19 History ciprofloxacin HCl 500 mg tablet 500 mg PO BID 04/19/25 04/19/25 History escitalopram oxalate 20 mg tablet 10 mg PO QDAY 04/19/25 History glimepiride 2 mg tablet 2 mg PO BID 04/19/25 5 History meloxicam 15 mg tablet 15 mg PO QDAY 04/19/2504/19 History tirzepatide 15 mg/0.5 mL 15 mg subcut WEEKLY 04/19/25 04/19/25 History subcutaneous pen injector (Mounjaro) Allergies Allergies Allergy/AdvReac Type Severity Reaction Status Date / Time No Known Allergies Allergy Verified 04/19/25 19:29 Labs 04/20/25 04:15 04/20/25 04:15 Labs: 04/19/25 19:09 Blood Blood Culture Gram Stain - Final 04/19/25 19:09 Blood Blood Culture - Preliminary Laboratory WBC 19.3 X10^3/uL (3.6-10.0) H 04/20/25 04:15 RBC 4.36 X10^6/uL (4.7-6.0) L 04/20/25 04:15 Hgb 12.4 g/dL (13.5-18.0) L 04/20/25 04:15 Hct 36.4 % (42.0-54.0) L 04/20/25 04:15 MCV 83.5 fL (80.0-100.0) 04/20/25 04:15 MCH 28.4 pg (27.0-34.0) 04/20/25 04:15 MCHC 34.0 g/dL (33.0-35.0) 04/20/25 04:15 RDW 14.5 % (11.6-16.5) 04/20/25 04:15 Plt Count 193 X10^3/uL (150.0-450.0) 04/20/25 04:15 Plt Count Comment Adequate (ADEQUATE) 04/19/25 19:03 MPV 9.4 fL (7.4-11.0) 04/20/25 04:15 Neut % (Auto) 78.5 % (42.0-75.0) H 04/20/25 04:15 Lymph % (Auto) 12.3 % (21.0-51.0) L 04/20/25 04:15 [place] % (Auto) 8.9 % (0.0-13.0) 04/20/25 04:15 Eos % (Auto) 0.1 % (0.9-2.9) L 04/20/25 04:15 Baso % (Auto) 0.2 % (0.2-1.0) 04/20/25 04:15 Neut # (Auto) 15.2 x10^3/uL (2.2-4.8) H 04/20/25 04:15 Lymph # (Auto) 2.4 X10^3/uL (1.3-2.9) 04/20/25 04:15 [place] # (Auto) 1.7 x10^3/uL (0.3-0.8) H 04/20/25 04:15 Eos # (Auto) 0.0 x10^3/uL (0.0-0.2) 04/20/25 04:15 Baso # (Auto) 0.0 X10^3/uL (0.0-0.1) 04/20/25 04:15 Absolute Nucleated RBC 0.0 /100WBC 04/20/25 04:15 Total Counted 100 04/19/25 19:03 Neutrophils % (Manual) 81 % (39-76) H 04/19/25 19:03 Lymphocytes % (Manual) 11 % (13-43) L 04/19/25 19:03 Monocytes % (Manual) 8 % (4-9) 04/19/25 19:03 Plt Morphology Comment Normal (NORMAL) 04/19/25 19:03 RBC Morphology Normal (NORMAL) 04/19/25 19:03 D-Dimer 2.46 ug/ml (0.0-0.57) H 04/19/25 19:03 Sodium 137 mmol/L (136-145) 04/20/25 04:15 Corrected Sodium 138 mmol/L (136-145) 04/20/25 04:15 Potassium 3.8 mmol/L (3.5-5.1) 04/20/25 04:15 Chloride 103 mmol/L (98-107) 04/20/25 04:15 Carbon Dioxide 23.5 mmol/L (21-32) 04/20/25 04:15 BUN 12 mg/dL (7-18) 04/20/25 04:15 Creatinine 0.93 mg/dL (0.70-1.30) 04/20/25 04:15 Est GFR (MDRD) Af Amer > 60 (>60) 04/20/25 04:15 Est GFR (MDRD) Non-Af > 60 (>60) 04/20/25 04:15 Glucose 137 mg/dL (65-99) H 04/20/25 04:15 POC Glucose (mg/dL) 139 mg/dL (65-99) H 04/20/25 05:28 Lactic Acid 2.0 mmol/L (0.4-2.0) 04/19/25 21:03 Calcium 8.3 mg/dL (8.5-10.1) L 04/20/25 04:15 Corrected Calcium 8.9 mg/dL (8.5-10.1) 04/20/25 04:15 Magnesium 2.4 mg/dL (2.0-2.9) 04/20/25 04:15 Total Bilirubin 1.30 mg/dL (0.2-1.0) H 04/20/25 04:15 AST 21 Units/L (15-37) 04/20/25 04:15 ALT 17 Units/L (12-78) 04/20/25 04:15 Alkaline Phosphatase 77 Units/L (46-116) 04/20/25 04:15 Troponin I High Sens 11.7 ng/L (4.0-60.0) 04/19/25 21:03 B-Natriuretic Peptide 42.8 pg/mL (0-79) 04/19/25 19:03 Total Protein 7.4 g/dL (6.4-8.2) 04/20/25 04:15 Albumin 3.3 g/dL (3.4-5.0) L 04/20/25 04:15 Globulin 4.1 g/dL (2.5-4.5) 04/20/25 04:15 Albumin/Globulin Ratio 0.8 Ratio (1.1-2.1) L 04/20/25 04:15 Specimen Type Clean catch urine 04/19/25 19:30 Urine Color Yellow (YELLOW) 04/19/25 19: Urine Appearance Clear (CLEAR) 04/19/25 19: Urine pH 6.0 (5.0 - 8.0) 04/19/25 19:30 Ur Specific [place] 1.005 (1.000-1.030) 04/19/25 19:30 Urine Protein 1+ (NEGATIVE) 04/19/25: Urine Glucose (UA) 4+ (NEGATIVE) 04/19/25 19: Urine Ketones 3+ (NEGATIVE) 04/19/25: Urine Blood 2+ (NEGATIVE) 04/19/25: Urine Nitrite Negative (NEGATIVE) 04/19/25: Urine Bilirubin Negative (NEGATIVE) 04/19/25 19: Urine Urobilinogen Normal (NORMAL) 04/19/25 19: Ur Leukocyte Esterase Negative (NEGATIVE) 04/19/25 19:30 Urine RBC 3-5 /HPF (0-3) A 04/19/25 19: Urine WBC 30-50 /HPF (0-5) A 04/19/25 19:30 Ur Squamous Epith Cells Negative /HPF (NEGATIVE) 04/19/25 19:30 Urine Bacteria Negative /HPF (NEGATIVE) 04/19/25 19:30 Ur Culture Indicated? Yes/culture set up 04/19/25 19:30 SARS-CoV-2 (PCR) Negative (NEGATIVE) 04/19/25 19:10 Influenza Type A (PCR) Negative (NEGATIVE) 04/19/25 19:10 Influenza Type B (PCR) Negative (NEGATIVE) 04/19/25 19:10 RSV (PCR) Negative (NEGATIVE) 04/19/25 19:10 Review of Systems Constitutional: Fever, Chills, Weakness and Malaise Eyes: No Symptoms Reported ENT: No Symptoms Reported Respiratory: No Symptoms Reported Cardiovascular: No Symptoms Reported Gastrointestinal: Nausea and Other (no appetite) Genitourinary: Dysuria and Frequency Musculoskeletal: Back Pain and Leg Pain Skin: No Symptoms Reported Neurological: Weakness Physical Exam Vital Signs: Vital Signs Temperature 98 F Temperature 98.7 F Pulse Rate 88 Pulse Rate 104 Respiratory Rate 24 Respiratory Rate 24 Blood Pressure 124/69 Blood Pressure 134/68 O2 Sat by Pulse Oximetry 96 O2 Sat by Pulse Oximetry 97 Oriented: Normal Eyes: Normal Ear: Normal Nose: Normal Throat: Dry Respiratory: RLL Diminished and LLL Diminished Cardiovascular: Tachycardia Auscultation: Bowel Sounds: Normal Palpation: Normal Tenderness: Suprapubic and Mild Skin: Decreased [place] Musculoskeletal: Knee, Leg and Back:Lumbar Psychiatric: Anxiety Mood Description: Anxious Affect: Anxious Speech Pattern: Clear and Appropriate Assessment/Plan (1) Sepsis secondary to UTI: Status: Acute Plan: ADMIT, ICU, CARDIAC MONITORING BP CONTROL, IV HYDRATION BC, UC ON ADMISSION, OBTAIN OUTPT URINE CULTURE FROM PCP IV ATBX, CXR ON ADMISSION (2) Hypertension: Status: Acute (3) Diabetes mellitus type 2, noninsulin dependent: Status: Acute (4) Hypothyroidism: Status: Acute
[2025-04-20] MEDS ORDERED: LEXAPRO ONE (08:40)
[2025-04-20] MEDS ORDERED: PATIENT'S HOME MEDICATION (Aspirin 81 mg Tablet) PO SCH (09:00)
[2025-04-20] MEDS: K-DUR TAB 20 MEQ PO SCH (09:11)
[2025-04-20] MEDS: COZAAR PO SCH (09:11)
[2025-04-20] MEDS: ASPIRIN EC 81 MG PO SCH (09:11)
[2025-04-20] MEDS: LEXAPRO PO SCH (09:11)
[2025-04-20] MEDS: APRESOLINE INJ 20 MG VIAL ONE (09:17)
[2025-04-20] MEDS: OMNIPAQUE 350 mg/mL 100 mL BTL 100 ML ONE (09:17)
[2025-04-20] MEDS: NovoLIN R (or HumuLIN R) SUBCUT PRN (13:53)
[2025-04-20] MEDS: SNACK - Diabetic Appropriate PO SCH (20:24)
[2025-04-21 05:00] LABS: MEAN PLATELET VOLUME 9.4 fL (7.4-11.0); RED CELL DISTRIBUTION WIDTH 14.7 % (11.6-16.5)
[2025-04-21 05:15] LABS: COR CA(FOR HYPOALB) 9.0 mg/dL (8.5-10.1); COR NA(FOR HYPERGLY) 139 mmol/L (136-145); CREATININE 0.88 mg/dL (0.70-1.30); eGFR NON BLACK RACES > 60 (>60)
[2025-04-21] MEDS ORDERED: LEXAPRO ONE (08:05)
[2025-04-21 12:04] VITALS: BP 136/72; PULSE 83; RESP 33; TEMP 98.2; O2SAT 96
--- NOTE | 2025-04-21 12:11 | RAD ---
EXAM: CHEST, PA/LAT ADULT HISTORY: Shortness of breath COMPARISON: Frontal chest radiograph April 19, 2025 TECHNIQUE: Frontal and lateral views of the chest FINDINGS: The trachea is midline. Heart silhouette is prominent without failure. The lungs demonstrate interstitial coarsening which is similar to the comparison study and may be chronic. No pneumothorax or confluent airspace opacity. Thoracic spondylosis is moderate and multilevel. No pleural effusion. IMPRESSION: Chronic appearing interstitial coarsening. THIS IS AN ELECTRONICALLY VERIFIED FINAL REPORT 04/21/2025 12:08 PM - Electronically signed by Sonny Santa MD
== END 2025-04-21 12:33 | disposition home or self-care (01) ==
LOC: ER 18:44 → ICU 18:44
PROVIDERS: ADMIT Internal Medicine; ATTEND Internal Medicine
DX: F32.89 Other specified depressive episodes; Z16.12 Extended spectrum beta lactamase (ESBL) resistance; F41.8 Other specified anxiety disorders; I10 Essential (primary) hypertension; E87.1 Hypo-osmolality and hyponatremia; B96.4 Proteus (mirabilis) (morganii) as the cause of diseases classified elsewhere; Z98.890 Other specified postprocedural states; E87.6 Hypokalemia; E80.6 Other disorders of bilirubin metabolism; E11.65 Type 2 diabetes mellitus with hyperglycemia; R94.31 Abnormal electrocardiogram [ECG] [EKG]; E86.0 Dehydration; N39.0 Urinary tract infection, site not specified; A41.89 Other specified sepsis; E78.5 Hyperlipidemia, unspecified; R79.89 Other specified abnormal findings of blood chemistry; R07.89 Other chest pain; R06.02 Shortness of breath; I25.2 Old myocardial infarction; B95.2 Enterococcus as the cause of diseases classified elsewhere; E03.8 Other specified hypothyroidism; R00.0 Tachycardia, unspecified; M19.90 Unspecified osteoarthritis, unspecified site; K21.9 Gastro-esophageal reflux disease without esophagitis; R10.84 Generalized abdominal pain; I16.0 Hypertensive urgency; Z03.818 Encounter for observation for suspected exposure to other biological agents ruled out; R79.1 Abnormal coagulation profile